=== PATIENT | female | born 1965 | race Caucasian/White ===

== ENCOUNTER 2017-05-14 20:21 | Inpatient (IN) | payer SELFPAY ==
[~2017-05-14] VITALS: Ht 144.8 cm; Wt 59.0 kg
--- NOTE | 2017-05-14 21:20 | NUR ---
DR UNGER AT BEDSIDE FOR MSE.
--- NOTE | 2017-05-14 21:25 | NUR ---
REC'D A 51/F IN RM 8 WTIH C/O PERIUMBILICAL PAIN X 1 DAY. PT REPORTS DIARRHEA AND NAUSEA. PT AAOX4, RESP EVEN AND UNLABORED. ON CM. CALL LIGHT WITHIN REACH, WILL CONTINUE TO MONITOR.
--- NOTE | 2017-05-14 21:30 | NUR ---
INITIATED NS BOLUS AND MEDICATED PT FOR PAIN. PLEASE SEE EMAR.
--- NOTE | 2017-05-14 21:39 | NUR ---
PT TAKEN TO CT VIA WC.
[2017-05-14 21:41] LABS: PLATELET COUNT 365 x10^3mcL (130-400); RED CELL DISTRIBUTION WIDTH 14.4 % (11.5-14.5)
[2017-05-14 21:50] LABS: CHLORIDE SERUM 103 mmol/L (98-107); CREATININE SERUM 0.7 mg/dL (0.6-1.0); GFR1 > 60 mL/min; GLUCOSE SERUM 119 mg/dL (74-106); POTASSIUM SERUM 3.1 mmol/L (3.5-5.1); SODIUM SERUM 140 mmol/L (136-145)
[2017-05-14 21:54] LABS: ALBUMIN 3.7 g/dL (3.4-5.0); ALKALINE PHOSPHATASE 115 U/L (46-116); ALT/SGPT 23 U/L (14-59); AST/SGOT 19 U/L (15-37); BILIRUBIN TOTAL 0.47 mg/dL (0.20-1.00); LIPASE 98 IU/L (73-393); TOTAL PROTEIN, SERUM 7.8 g/dL (6.4-8.2)
--- NOTE | 2017-05-14 22:14 | NUR ---
PT ASLEEP ON GURNEY, RESP EVEN AND UNLABORED. WILLCONTINUE TO MONITOR.
[2017-05-14 22:24] LABS: BAND NEUTROPHIL 5 % (0-10); MONOCYTE 5 % (0-7); SEGMENTED NEUTROPHILS 80 % (37-75)
[2017-05-14 22:25] LABS: PLATELET MORPHOLOGY PLATELETS NORMAL; rbc morphology (normal/abnorm) NORMAL (NORMAL)
--- NOTE | 2017-05-14 22:30 | NUR ---
MEDICATED PT ORDERED. PLEASE SEE EMAR.
--- NOTE | 2017-05-14 23:19 | NUR ---
INITIATED FLAGYL AND NS BOLUS. PLEASE SEE EMAR.
--- NOTE | 2017-05-14 23:31 | NUR ---
REPORT GIVEN TO ARIEL MADDOX TO ASSUME CARE OF THE PT.
--- NOTE | 2017-05-14 23:53 | NUR ---
PT AMBULATED TO THE RESTROOM.
[2017-05-15 00:07] LABS: UA SPECIFIC GRAVITY 1.025 (1.005-1.035); microscopic required? YES; urine erythrocyte 2+ (NEGATIVE)
[2017-05-15 00:14] LABS: AMPHETAMINE QUAL UR NONE DETECTED (NEG <=1000)
--- NOTE | 2017-05-15 00:41 | NUR ---
INITIATED LEVAQUIN @150ML/HR. PLEASE SEE EMAR.
[2017-05-15 00:54] LABS: FREE T4 1.48 ng/dL (0.76-1.46); FREE THYROXINE INDEX 4.1 ug/dL (1.4-4.5); T4(THYROXINE) 11.3 ug/dL (4.7-13.3)
[2017-05-15 01:24] LABS: PHOSPHOROUS 2.9 mg/dL (2.5-4.9)
--- NOTE | 2017-05-15 01:24 | NUR ---
RECEIVED PT FROM ED VIA NICO. ORIENTED PT TO ROOM AND SURROUNDINGS. IV NOTED TO LAC PATENT AND INTAC. TELE 24 PLACED ON PT READING NSR. INSTRUCTED PT ON THE USE OF CALL LIGHT FOR ASSISTANCE. ENDORSED PT TO PRIMARY NURSE VARSHA
[2017-05-15 01:29] LABS: CHOLESTEROL/HDL RATIO 2.3
[2017-05-15 01:32] VITALS: BP 111/65
[2017-05-15 02:05] LABS: T3 TOTAL 1.19 ng/mL
--- NOTE | 2017-05-15 06:33 | NUR ---
PATIENT RESTING IN BED. RESPIRATION EVEN AND UNLABORED, ON ROOM AIR. COMPLAINED OF MILD ABDOMINAL PAIN, PS 5/10. IV SITE NO SIGN OF INFILTRATION. MEDICATED WITH NORCO 7.5/325 MG PO ORDERED. NO EPISODES OF DIARRHEA NOTED. ASSISTED WITH NEEDS. SAFETY OBSERVED. PLACED CALL LIGHT WITHIN REACH AT ALL TIMES.
--- NOTE | 2017-05-15 07:20 | NUR ---
RECEIVED PT LAYING IN BED LISTENING TO MUSIC ON PHONE. PT IS A&O X 4, BREATHING EQUAL AND UNLABORED WITH CLEAR LUNG SOUNDS AUSCULTATED THROUGHOUT. STRONG PULSES PRESENT. PT HAS ACTIVE BOWEL SOUNDS X 4 QUADRANTS AND HAS 5/10 PAIN IN ABD, PER PT NORCO HELPED WITH PAIN. PT STATES HER ABD PAIN IS IN THE MIDDLE AND DOES NOT RADIATE, THE PAIN COMES AND GOES AND NOTHING HELPS. PT DENIES SOB, CP, DYSURIA. PT EDUCATED JANITORIAL ASSISTANT LIGHT AT THIS TIME. WILL CONTINUE TO MONITOR PT AT THIS TIME.
--- NOTE | 2017-05-15 07:30 | NUR ---
RECEIVED REPORT FROM NOC SHIFT RN VARSHA, ALL QUESTIONS AND CONCERNS ADDRESSED AT THIS TIME. WILL ASSUME ALL CARE.
--- NOTE | 2017-05-15 09:25 | NUR ---
PT STILL COMPLAINING OF PAIN, BP TOO LOW FOR PAIN MEDICATIONS AT THIS TIME. WILL FOLLOW UP.
[2017-05-15 09:50] VITALS: BP 86/51
--- NOTE | 2017-05-15 11:20 | NUR ---
PT STILL COMPLAINING ABOUT ABD PAIN, BP 83/53, MAP 63. WILL FOLLOW UP WITH
--- NOTE | 2017-05-15 11:25 | NUR ---
MADE AWARE OF PT LOW BP, DR TO ORDER BOLUS AND REEVALUATE.
--- NOTE | 2017-05-15 12:36 | NUR ---
PT EATING LUNCH AT THIS TIME, 500 ML BOLUS COMPLETED. WILL REASSESS BLOOD PRESSURE AFTER PT HAS COMPLETED LUNCH TRAY.
[2017-05-15 12:49] VITALS: BP 96/57
--- NOTE | 2017-05-15 12:57 | NUR ---
PT MAP 66, MADE AWARE. RECOMMEND GI COCKTAIL, PER DR, WILL ORDER GI COCKTAIL.
--- NOTE | 2017-05-15 13:29 | NUR ---
PT TOLERATED GI COCKTAIL WELL, WILL FOLLOW UP WITH ABD PAIN.
--- NOTE | 2017-05-15 14:26 | NUR ---
PT MAP 73, MADE AWARE, TO ORDER TORADOL FOR PAIN.
--- NOTE | 2017-05-15 14:53 | NUR ---
PRN TORADOL GIVEN FOR ABD PAIN. PER PT, HAVING DIARRHEA X 3 IN THE LAST HOUR AND 6 OTHER TIMES BEFORE THAT. PER PT, BROWN WITH NO BLOOD NOTED. INSTRUCTED PT TO DRINK LOTS OF FLUIDS, PITCHER OF WATER AND APPLE JUICE PROVIDED AT THIS TIME. WILL CONTINUE TO MONITOR PT.
[2017-05-15 17:10] VITALS: BP 91/57
--- NOTE | 2017-05-15 19:53 | NUR ---
PT CURRENTLY RESTING IN BED, NO ACUTE DISTRESS. A/O X4. TELE #24 SHOWING SINUS RHYTHM, DENIES CHEST PAIN. PULSES PALPABLE IN ALL EXTREMITIES, NO EDEMA NOTED. LUNG SOUNDS CTA BILATERALLY. BOWEL SOUNDS ACTIVE, LAST BM 05/15/17, PT REPORTS DIARRHEA. VOIDING WELL. AMBULATORY. SKIN INTACT. DENIES PAIN AT THIS TIME. IV PATENT AND INTACT. BED IN LOWEST POSITION, SIDE RAILS UP X2, SCDS IN PLACE, CALL LIGHT WITHIN REACH. WILL CONTINUE TO MONITOR.
[2017-05-15 21:46] VITALS: BP 101/63
--- NOTE | 2017-05-16 06:00 | NUR ---
PT SLEPT PERIODICALLY THROUGHOUT NIGHT, NO ACUTE DISTRESS. ALL NEEDS MET AND ATTENDED TO. NO SIGNIFICANT CHANGES. IV PATENT AND INTACT. BED IN LOWETS POSITION, SIDE RAILS UP X2, CALL LIGHT WITHIN REACH. WILL ENDORSE CARE TO ONCOMING NURSE.
[2017-05-16 06:09] VITALS: BP 96/62
[2017-05-16 07:14] LABS: CALCIUM 8.3 mg/dL (8.5-10.1); CARBON DIOXIDE 27.5 mmol/L (21-32); CHLORIDE SERUM 111 mmol/L (98-107); CREATININE SERUM 0.6 mg/dL (0.6-1.0); GFR1 > 60 mL/min; GLUCOSE SERUM 88 mg/dL (74-106); SODIUM SERUM 143 mmol/L (136-145)
--- NOTE | 2017-05-16 07:30 | NUR ---
PATIENT IS SITTING UP IN BED, AWAKE ALERT AND ORIENTED. DENIES ANY PAIN, DOES C/O A NON PRODUCTIVE COUGH AT THIS TIME. LUNGS CLEAR ON ROOM AIR. TELE DC'D AT THIS TIME NEW ORDER RECEIVED FOR MED/SURG STATUS. IV SITE LEAKING LEFT A/C, ERNESTO IV STARTED ON LEFT HAND. ABD SOFT, BOWEL SOUNDS ACTIVE. PT C/O HAVING SEVERAL EPISODES OF DIARRHEA. INFORMED PATIENT ON THE NEW FOR STOOL COLLECTION. DENIES ANY N/V. WILL CONTINUE TO MONITOR.
[2017-05-16 07:37] LABS: BASOPHIL % 0.7 % (0-2); PLATELET COUNT 340 x10^3mcL (130-400); RED CELL DISTRIBUTION WIDTH 14.5 % (11.5-14.5)
--- NOTE | 2017-05-16 08:00 | NUR ---
PATIENT'S PLAN OF CARE WAS DISCUSSED AND REVIEWED WITH TRAFFIC LAW ATTORNEY:JOHN SIDHU
--- NOTE | 2017-05-16 08:30 | NUR ---
DR MATUTE AND MEDICAL TEAM INTO SEE PATIENT AND DISCUSS PLAN OF CARE.
--- NOTE | 2017-05-16 10:15 | NUR ---
PATIENT MEDICATED FOR COUGH ORDERED. WILL MONITOR FOR EFFECT.
[2017-05-16 10:18] VITALS: BP 98/62
--- NOTE | 2017-05-16 13:09 | NUR ---
PATIENT REMAINS IN BED. STOOL SPECIMEN COLLECTED FOR C-DIF AND SENT TO THE LAB ORDERED. COUGH MED GIVEN ORDERED, AND PER PATIENT ONLY A LITTLE RELIEF NOTED. WILL CONTINUE TO MONITOR.
[2017-05-16 14:21] VITALS: BP 100/66
--- NOTE | 2017-05-16 15:44 | NUR ---
DR. TRIPP AWARE OF C. DIFF POSITIVE RESULT. PRIMARY NURSE JOHN MADE AWARE.
--- NOTE | 2017-05-16 16:08 | NUR ---
DR TRIPP NOTIFIED OF PATIENT'S STOOL SPECIMEN RESULT OF POSITIVE C-DIFF.
--- NOTE | 2017-05-16 18:13 | NUR ---
PATIENT IS IN CONTACT ISOLATION FOR C-DIFF. PATIENT AWARE. C/O HEADACHE 02/27 MEDICATED WITH TYLENOL PO ORDERED. PATIENT TOLERATING BRAT DIET WELL. PER PATIENT SHE ONLY HAS HAD ONE LOOSE STOOL TODAY. DENIES ANY ABD PAIN OR N/V. FAMILY MEMBERS AT BEDSIDE. IVF INFUSING WELL. WILL CONTINUE TO MONITOR.
[2017-05-16 18:46] VITALS: BP 109/72
--- NOTE | 2017-05-16 18:57 | NUR ---
I HAVE REVIEWED THE DATA COLLECTION BY DIONISIO (NAME):JOHN SIDHU ENTERED ON (DATE/TIME):05/16/17 I CONCUR WITH THE DATA AND ANY EXCEPTIONS OR COMMENTS ARE LISTED BELOW:
--- NOTE | 2017-05-16 19:55 | NUR ---
PT CURRENTLY RESTING IN BED, NO ACUTE DISTRESS. A/O X4. NO TELE, MED/SURG. PULSES PALPABLE IN ALL EXTREMITIES, NO EDEMA NOTED. LUNG SOUNDS CTA BILATERALLY, C/O COUGH. BOWEL SOUNDS ACTIVE, LAST BM 05/16/17, PT REPORTS LOOSE STOOLS. VOIDING WELL. AMBULATORY. SKIN INTACT. DENIES PAIN AT THIS TIME. IV PATENT AND INTACT. BED IN LOWEST POSITION, SIDE RAILS UP X2, SCDS IN PLACE, CALL LIGHT WITHIN REACH. WILL CONTINUE TO MONITOR.
[2017-05-16 22:10] VITALS: BP 100/61
--- NOTE | 2017-05-17 05:35 | NUR ---
PT SLEPT PERIODICALLY THROUGHOUT NIGHT, NO ACUTE DISTRESS. ALL NEEDS MET AND ATTENDED TO. NO SIGNIFICANT CHANGES. IV PATENT AND INTACT. BED IN LOWEST POSITION, SIDE RAILS UP X2, SCDS IN PLACE, CALL LIGHT WITHIN REACH. WILL ENDORSE CARE TO ONCOMING NURSE.
[2017-05-17 06:04] LABS: BASOPHIL % 0.6 % (0-2); PLATELET COUNT 378 x10^3mcL (130-400); RED CELL DISTRIBUTION WIDTH 14.2 % (11.5-14.5)
[2017-05-17 06:12] VITALS: BP 108/67
[2017-05-17 06:17] LABS: CALCIUM 8.5 mg/dL (8.5-10.1); CARBON DIOXIDE 29.7 mmol/L (21-32); CHLORIDE SERUM 106 mmol/L (98-107); CREATININE SERUM 0.6 mg/dL (0.6-1.0); GFR1 > 60 mL/min; GLUCOSE SERUM 93 mg/dL (74-106); POTASSIUM SERUM 4.2 mmol/L (3.5-5.1); SODIUM SERUM 144 mmol/L (136-145)
[2017-05-17 09:15] VITALS: BP 118/61
--- NOTE | 2017-05-17 12:03 | NUR ---
Initial Nutrition Assessment Dx: Abd Pain, Colitis PMHx: Pt denies any past medical history PSHx: Labs: BG 93, BUN 4 L; (05/14) A1C 6 Meds: Colace, NS IV, zofran Current Diet Order: Mechanical Soft, Chopped, BRAT PO Intakes: (05/15) B: 85%, L: 100% Ht: 57", 4' 9". Wt: 130 lb, 59 kg. BMI: 28.2 kg/m2 (Overweight) IBW: 93 lb, 42 kg. %IBW: 140%. Adj BW: 102 lb, 46 kg. UBW: 129-139 lb, 59-63 kg. Age: 51 Y/O F Food Allergies: None Skin: Intact. Boo 19. Edema: None GI: Active bowel sounds. Last BM x1 05/16. Loose stools - Verified with pt, stated has only x1 loose stools so far today. Pt found with disorder of GI likely secondary to gastroenteritis, r/o C. Diff per doctor's notes. Per doctor's progress note 05/16, pt had C. Diff. toxins positive, was started on oral flagyl, had 3 episodes of diarrhea since morning, had some nausea, some abd pain but tolerable; Pt with Clostridium Difficile Colitis. Pt on contact isolation for C. Diff. positive. Pt stated that she is doing well at this time, hungry, tired of being on BRAT diet, and wants something more solid. Pt stated that she has no more abd pain, no nausea, wants to go home when able. Problem with: N: None. V: None. D: None. C: None. Problems with: Chewing: None. Swallowing: None. Current Appetite: Good Recent Weight Change: -9 lb. % Weight Change: 6.5% weight loss within 6 month - Pt stated it was intentional, trying to lose weight with healthier eating Vitamin/Supplement use: None Diet at Home: Regular Physical Activity: Walks Education: RD educated pt on importance of hydration when having diarrhea. Pt acknowledged and verbalizes understanding. Estimated Nutritional Needs Based IBW 93 lb, 42 kg. Energy: 6572-7795 kcal/day (25-30 kcal/kg for Maintenance) Protein: 42-50 gm/day (1-1.2 gm/kg for Repletion) Fluids: 1470 ml/day (35 ml/kg for Diarrhea due to C. Diff positive) or per doctor Nutrition Diagnosis Increase protein and fluid needs related to repletion secondary to diarrhea, C. Diff positive as evidenced by pt with prior multiple loose stools, resolving Intervention 1. Continue BRAT diet per doctor. 2. Consider advance as tolerated to Regular diet if/when medically appropriate. 3. If diarrhea persists, consider Banatrol BID (80 kcal, <2 gm protein) to PO diet. Monitor/Evaluate Goal: PO intakes to meet >75% of estimated needs; Diarrhea to subside Monitor: PO intakes, tolerance to diet, labs, skin integrity, GI function F/U in 3-5 days as MODERATE risk (05/20-05/22)
[2017-05-17 14:07] VITALS: Ht 144.8 cm; Wt 59.0 kg
[2017-05-17] MEDS ORDERED: LAC PO (14:22)
[2017-05-17] MEDS ORDERED: FLA500 PO (14:22)
[2017-05-17 14:25] VITALS: BP 118/61
[2017-05-17] MEDS ORDERED: ZOF4 PO (14:30)
--- NOTE | 2017-05-17 17:52 | NUR ---
DISCHARGE INSTRUCTIONS AND PRESCRIPTION GIVEN, PATIENT VERBALIZED UNDERSTANDING. IV DC'D CATH INTACT. PATIENT LEAVING UNIT NOW ACCOMPANIED BY BATHING SUIT MAKER.
== END 2017-05-17 17:52 | disposition home or self-care (01) | DRG 371 ==
LOC: ED 20:21 → DU 23:05 → MU 23:05 → DU 05-15 01:18 → MU 05-16 07:55
PROVIDERS: Emergency Medicine; Family Medicine Sports Medicine; ADMIT Family Medicine
DX: A04.7 Enterocolitis due to Clostridium difficile (principal); N17.0 Acute kidney failure with tubular necrosis; N39.0 Urinary tract infection, site not specified; E87.6 Hypokalemia; E02 Subclinical iodine-deficiency hypothyroidism; E66.3 Overweight; R31.9 Hematuria, unspecified; Z68.28 Body mass index [BMI] 28.0-28.9, adult; Z88.4 Allergy status to anesthetic agent
CPT/HCPCS: 83880; 84439; J0500; J0696; J1885; J1956; J2270; J2405; J3490; J7030; Q0092